=== PATIENT | female | born 1950 | race Caucasian/White ===

== ENCOUNTER 2022-07-28 12:34 | Emergency (ER) | payer MEDICARE, SELFPAY ==
[2022-07-28 12:40] VITALS: BP 113/63; PULSE 92; RESP 16; TEMP 36.6; O2SAT 99
--- NOTE | 2022-07-28 14:13 | ED.LOWEXIN ---
HPI - Extremity Injury (Lower) General Chief Complaint: Extremity Problem,Nontraumatic Stated Complaint: left leg vein bleeding Time Seen by Provider: 07/28/22 13:00 Source: patient and RN notes reviewed Mode of arrival: ambulatory Limitations: no limitations History of Present Illness HPI Narrative: This is a 71 year old female who presents for evaluation of a bleeding varicose vein. She states she was about to get in the shower when she noticed bleeding from one of her varicose veins. She reports significan bleeding at that time so they applied tower for pressure. She states there was a blood blister initially and it popped. She denies taking any blood thinners. Related Data Allergies Allergy/AdvReac Type Severity Reaction Status Date / Time cortisone Allergy Unknown Cramping Verified 07/28/22 13:51 of the Muscles Review of Systems Constitutional: Constitutional: Denies weakness Cardiovascular: Cardiovascular: Denies syncope, Denies rapid heart rate, Denies irregular heart rhythm, Denies leg edema and Denies dyspnea Respiratory: Respiratory: Denies chest congestion, Denies hemoptysis, Denies excessive phlegm production and Denies dyspnea Gastrointestinal: Gastrointestinal: Denies abdominal pain, Denies hematochezia, Denies diarrhea and Denies vomiting Genitourinary: Genitourinary: Denies hematuria and Denies dysuria Musculoskeletal: Musculoskeletal: Denies joint swelling, Denies loss of height and Denies muscle weakness Neurologic: Denies syncope, Denies focal weakness and Denies weakness PMFSH Social History Social History Smoking status: Never smoker Alcohol intake: never Exam Const: General: no acute distress and alert Nutritional Appearance: well nourished HENMT: Head: normal to inspection Eyes: EOM: EOMs intact bilaterally Resp: Effort & Inspection: normal respiratory effort Neuro: General: patient oriented x3, moves all extremities and CN's II-XI intact bilaterally Cranial nerves: Yes Nystagmus not present Speech: normal speech Gait exam (Neuro): Normal gait present Extrem: Other: left lower extremity with multiple varicose veins, there is small punctate opening at lower anterior lower leg. IT will bleed dark oozing. Psych: Mental Status: mental status grossly normal Affect: normal affect Attitude: cooperative Course Reevaluation(s) Reevaluation #1: I placed a stitch and bleeding has subsided Date: 07/28/22 Time: 15:01 Vital Signs Vital signs: Vital Signs Temperature 97.9 F 07/28/22 12:40 Pulse Rate 92 07/28/22 12:40 Respiratory Rate 16 07/28/22 12:40 Blood Pressure 113/63 07/28/22 12:40 Pulse Oximetry 99 07/28/22 12:40 Oxygen Delivery Room Air 07/28/22 12:40 Temperature 97.9 F 07/28/22 12:40 Pulse Rate 92 07/28/22 12:40 Respiratory Rate 16 07/28/22 12:40 Blood Pressure 113/63 07/28/22 12:40 Pulse Oximetry 99 07/28/22 12:40 Oxygen Delivery Room Air 07/28/22 12:40 Procedures Laceration Laceration 1: Date: 07/28/22 Time: 15:01 Site: lower extremity (left lower leg) Size (cm): 0.3 Description: other (punctate) Local Anesthetic: lidocaine 1% and with epi Amount of anesthesia used (mL): 1 Pre-repair: wound explored ====== Skin Level ====== Skin layer closed with: prolene Size (cm): 4-0 Number of sutures: 1 Technique: other (figure of 8 ) ====== Subcutaneous Layer ====== ====== Muscle Layer ====== ====== Tendon Layer ====== Discharge Plan Discharge Clinical Impression: Bleeding from varicose veins of left lower extremity Patient Disposition: Home, Self-Care Condition: Stable Instructions: Antibiotic Form, Acute Wounds (ED) Additional Instructions: IF you notice oozing from your wound apply pressure to stop bleeding. You will need to have stitch removed in 1 week. Follow up with joann
== END 2022-07-28 15:40 | disposition home or self-care (01) ==
PROVIDERS: Emergency Provider General Practice; PCP Family Medicine
DX: I83.892 Varicose veins of left lower extremity with other complications (principal)
CPT/HCPCS: 12001; 99282